=== PATIENT | female | born 1995 | race American Indian/Alaskan Native ===

== ENCOUNTER 2019-01-24 15:07 | Emergency (ER) | payer SELFPAY ==
--- NOTE | 2019-01-24 15:15 | Emergency Department Report ---
Blank Doc - Documentation Documentation: 15 weeks and turned in bed causing a severe lower abdominal pain. no bleeding. Plan labs and US <LINHNAHUM - Last Filed: 01/24/19 15:14> - Documentation Documentation: A physician and/or other qualified medical personnel has recommended that the patient receive further examination and/or treatment beyond their Medical Screening Exam. The risks and benefits were explained. The patient was informed of their right to emergency care. Patient left before final disposition of their medical condition. This note has been generated by me, Dr. Leon Hope III, MD, the [facility] or for the emergency department. I have not seen this patient personally. <LEON HOPE - Last Filed: 01/31/19 08:28>
[2019-01-24 15:45] VITALS: BP 132/73
== END 2019-01-24 17:00 | disposition left against medical advice (07) ==
LOC: ED 15:07
DX: O26.892 Other specified pregnancy related conditions, second trimester (principal); R10.30 Lower abdominal pain, unspecified; Z3A.15 15 weeks gestation of pregnancy; Z53.21 Procedure and treatment not carried out due to patient leaving prior to being seen by health care provider
CPT/HCPCS: 36415; 84702

== ENCOUNTER 2021-06-24 15:57 | Emergency (ER) | payer SELFPAY ==
[2021-06-24 16:04] VITALS: BP 133/84
--- NOTE | 2021-06-24 16:24 | Emergency Department Report ---
ED Palpitations HPI - General Chief Complaint: Arrhythmia/Palpitations Stated Complaint: HEART PALPITATIONS Time Seen by Provider: 06/24/21 16:14 Source: patient Mode of arrival: Ambulatory Limitations: No Limitations - History of Present Illness Initial Comments: Patient is 25 years old female with history of SVT on metoprolol. Patient presented to the ER complaining of palpitation that started all of a sudden this morning. Patient stated that she is taking metoprolol 12.5 mg but make her feel really tired and fatigue and she does not want to take it anymore. Patient denied any chest pain or shortness of breath. No fever or chills. No drug a buse. Complaint: rapid heart beat, palpitations -: Sudden, This afternoon Context: occured during rest Arrythmia History: SVT - Related Data Previous Rx's Medication Instructions Recorded Last Taken Type Diltiazem HCl [Cardizem LA] 120 mg PO DAILY #30 tab.er.24h 06/24/21 Unknown Rx Allergies Allergy/AdvReac Type Severity Reaction Status Date / Time No Known Allergies Allergy Unverified 01/24/19 15:09 ED Review of Systems ROS: Stated complaint: HEART PALPITATIONS Other details as noted in HPI Comment: All other systems reviewed and negative Constitutional: denies: chills, fever Respiratory: denies: cough, shortness of breath, SOB with exertion Cardiovascular: palpitations. denies: chest pain Gastrointestinal: denies: abdominal pain, nausea, vomiting Neurological: denies: headache, weakness, numbness, paresthesias, confusion Psychiatric: anxiety. denies: auditory hallucinations, visual hallucinations, homicidal thoughts, suicidal thoughts ED Past Medical Hx - Past Medical History Previous Medical History?: Yes Hx Hypertension: Yes Additional medical history: HEART PALPITATIONS - Surgical History Past Surgical History?: No - Social History Smoking Status: Never Smoker - Medications Home Medications: Home Medications Medication Instructions Recorded Confirmed Last Taken Type Diltiazem HCl [Cardizem LA] 120 mg PO DAILY #30 tab.er.24h 06/24/21 Unknown Rx ED Physical Exam - General Limitations: No Limitations General appearance: alert, in no apparent distress, anxious - Head Head exam: Present: atraumatic, normocephalic, normal inspection - ENT ENT exam: Present: normal exam, normal orophraynx, mucous membranes moist - Neck Neck exam: Present: normal inspection, full ROM. Absent: tenderness, meningismus - Respiratory Respiratory exam: Present: normal lung sounds bilaterally - Cardiovascular Cardiovascular Exam: Present: tachycardia - GI/Abdominal GI/Abdominal exam: Present: soft, normal bowel sounds. Absent: distended, tenderness, guarding, rebound, rigid, organomegaly, mass, bruit, pulsatile mass, hernia - Extremities Exam Extremities exam: Present: normal inspection, full ROM, normal capillary refill. Absent: tenderness, pedal edema, joint swelling, calf tenderness - Back Exam Back exam: Present: normal inspection, full ROM. Absent: CVA tenderness (R), CVA tenderness (L) - Neurological Exam Neurological exam: Present: alert, oriented X3, CN II-XII intact, normal gait, reflexes normal. Absent: motor sensory deficit - Psychiatric Psychiatric exam: Present: normal mood, anxious. Absent: homicidal ideation, suicidal ideation - Skin Skin exam: Present: warm, intact, normal color ED Course Vital Signs 06/24/21 16:00 Temperature 98.7 F Pulse Rate 135 H Respiratory 16 Rate Blood Pressure 133/84 O2 Sat by Pulse 99 Oximetry ED Medical Decision Making - Lab Data Result diagrams: 06/24/21 16:30 06/24/21 16:30 - EKG Data -: EKG Interpreted by [place] EKG shows normal: sinus rhythm Rate: tachycardia - EKG Data Interpretation: no acute changes - Medical Decision Making Patient is 25 years old female with history of SVT on metoprolol. Patient presented to the ER complaining of palpitation that started all of a sudden this morning. Patient stated that she is taking metoprolol 12.5 mg but make her feel really tired and fatigue and she does not want to take it anymore. Patient denied any chest pain or shortness of breath. No fever or chills. No drug abuse. Patient remained stable in the ER. EKG showed sinus tachycardia. No SVT observed. Labs reviewed and is unremarkable. Patient stated that she does not want to take metoprolol anymore. I will change patient medication to Cardizem. I advised her to stop her metoprolol while she is taking Cardizem. 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 Critical care attestation.: If time is entered above; I have spent that time in minutes in the direct care of this critically ill patient, excluding procedure time. ED Disposition Clinical Impression: Palpitation Disposition: HOME / SELF CARE / HOMELESS Is pt being admited?: No Condition: Stable Instructions: Palpitations, [id number] Prescriptions: Diltiazem HCl [Cardizem LA] 120 mg PO DAILY #30 tab.er.24h [facility] - 3-5 Days
[2021-06-24 16:57] LABS: Mean Corpuscular HGB Conc 30 % (30-34); Mean Corpuscular Volume 76 fl (79-97); Platelet Count 255 K/mm3 (140-440); Red Blood Count 4.73 M/mm3 (3.65-5.03)
[2021-06-24 17:11] LABS: Hemoglobin 10.7 gm/dl (10.1-14.3)
[2021-06-24 17:18] LABS: BUN/Creatinine Ratio 12; Blood Urea Nitrogen 7 mg/dL (7-17); Calcium 9.8 mg/dL (8.4-10.2); Hemolysis Index 2
[2021-06-24 17:32] LABS: Free T4 (Free Thyroxine) 1.1 ng/dL (0.76-1.46)
[2021-06-24 18:06] LABS: Hypochromasia 1+; Total Cells Counted 100
[2021-06-24 18:07] LABS: Anisocytosis 3+; Large Platelets Rare; Ovalocytes Few; Platelet Estimate Cons
--- NOTE | 2021-06-26 08:54 | Electrocardiograph Report ---
[facility] Test Date: 2021-06-24 Test Time: 16:07:16 Pat Name: FATOU HARMON Department: Room: Gender: F Survey Supervisor: TATE CLINEB: 1995 Requested By: VALENTÍN SAMUELS Order Number: [id number] Reading MD: London Lynn Measurements Intervals [place] Rate: 113 P: 69 DC: 146 QRS: 49 QRSD: 77 T: QT: 313 QTc: 429 Interpretive Statements Sinus tachycardia Probable left atrial enlargement No previous ECG available for comparison Electronically Signed On 06-26-2021 8:53:40 EST by London Lynn
== END 2021-06-25 05:59 | disposition home or self-care (01) ==
LOC: ED 15:57
DX: R00.2 Palpitations (principal); I10 Essential (primary) hypertension; Z79.899 Other long term (current) drug therapy
CPT/HCPCS: 36415; 80048; 84439; 84443; 84703; 85007; 85025; 93005; 99283